=== PATIENT | male | born 1990 | race Caucasian/White ===

== ENCOUNTER 2016-08-17 00:47 | Emergency (ER) | payer MEDICAID, OTHER ==
[~2016-08-17] VITALS: Ht 160 cm; Wt 85.0 kg
[~2016-08-17 00:47] MED LIST: PEN500 PO; TYL500 PO
[2016-08-17 00:52] VITALS: Ht 160 cm; Wt 85.0 kg
[2016-08-17] MEDS ORDERED: SOD CHLORIDE 0.9% 500 ML IV STA (00:56)
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
[2016-08-17] MEDS ORDERED: SOD CHLORIDE 0.9% 1,000 ML IV ONE ×2 (01:00→01:30)
[2016-08-17] MEDS ORDERED: DIPHTH/TET/ACEL PERTUSS (ADULT) 0.5 ML VIAL IM* ONE (01:00)
[2016-08-17] MEDS ORDERED: HYDROmorphONE 1 MG/ML SYG IV STA (01:03)
[2016-08-17] MEDS ORDERED: ONDANSETRON 4 MG INJ IV STA (01:03)
[2016-08-17] MEDS ORDERED: IOHEXOL 100 ML ONE ×2 (01:19)
[2016-08-17] MEDS ORDERED: SOD CHLORIDE 0.9% 100 ML ONE (01:19)
[2016-08-17] MEDS ORDERED: CEFAZOLIN 1 GM/50 ML (PMX) 50 ML IVPB SCH (01:30)
[2016-08-17 01:36] LABS: BASOPHIL # 0.1 10^3/ul (0.0-0.1); BASOPHILS % 0.4 % (0.0-2.0); EOSINOPHILS # 0.1 10^3/ul (0.0-0.5); HEMATOCRIT 48.8 % (42.0-52.0); HEMOGLOBIN 16.6 g/dl (14.0-18.0); LYMPHOCYTES # 3.9 10^3/ul (0.8-2.9); MEAN CORPUSCULAR HEMOGLOBIN 29.8 pg (29.0-33.0); MEAN CORPUSCULAR VOLUME 87.6 fl (82.0-101.0); MEAN PLATELET VOLUME 7.9 fl (7.4-10.4); MONOCYTE # 0.9 10^3/ul (0.3-0.9); NEUTROPHIL # 7.6 10^3/ul (1.6-7.5); NEUTROPHILS % 60.6 % (39.0-77.0); PLATELET COUNT 259 10^3/UL (140-440); RED BLOOD COUNT 5.57 10^6/ul (4.70-6.10); RED CELL DISTRIBUTION WIDTH 13.4 % (11.5-14.5); UNCORRECTED WBC 12.5 10^3/ul (4.8-10.8); WHITE BLOOD COUNT 12.5 10^3/ul (4.8-10.8)
[2016-08-17 01:42] LABS: POTASSIUM 3.5 mmol/L (3.5-5.1)
[2016-08-17 01:45] LABS: CREATININE 0.97 mg/dl (0.61-1.24)
[2016-08-17 01:46] LABS: CALCIUM 9.3 mg/dl (8.4-10.2)
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
[2016-08-17 02:12] LABS: CONDITION 1
[2016-08-17 02:14] LABS: INR 0.95; PROTIME 12.7 Sec (12.2-14.2)
[2016-08-17 02:15] LABS: PARTIAL THROMBOPLASTIN TIME 24.8 Sec (25.0-35.0)
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
[2016-08-17 02:56] VITALS: BP 147/90; PULSE 87; RESP 19; TEMP 98.9
== END 2016-08-17 03:49 | disposition short-term general hospital (02) ==
LOC: E/R 00:47
DX: S42.334A Nondisplaced oblique fracture of shaft of humerus, right arm, initial encounter for closed fracture (principal); F17.210 Nicotine dependence, cigarettes, uncomplicated; S45.191A Other specified injury of brachial artery, right side, initial encounter; R40.2142 Coma scale, eyes open, spontaneous, at arrival to emergency department; R40.2252 Coma scale, best verbal response, oriented, at arrival to emergency department; R40.2362 Coma scale, best motor response, obeys commands, at arrival to emergency department; W34.00XA Accidental discharge from unspecified firearms or gun, initial encounter; Y92.410 Unspecified street and highway as the place of occurrence of the external cause; Z23 Encounter for immunization
CPT/HCPCS: 36415; 73060; 73206; 80048; 85025; 85610; 85730; 86850; 86900; 86901; 90471; 90715; 96374; 96375; J0690; J1170; J2405; J7030; Q9967; Z7502; Z7610; J7040